=== PATIENT | female | born 1965 | race Caucasian/White ===

== ENCOUNTER 2017-05-19 13:45 | Emergency (ER) | payer MEDICAID ==
--- NOTE | 2017-05-19 14:07 | ER Document Report ---
HPI - HPI Patient complains to provider of: vaginal FB Onset: Other - 6-8 wks ago Onset/Duration: Persistent Quality of pain: Achy Pain Level: 5 Context: Patient states that she was at her primary doctor's office today and was told she had a vaginal foreign body. Patient states that she had been having vaginal discharge for the past 2 months that changed 2 weeks ago. Pt has attempted to treat with Monistat. Patient denies any fever or urinary symptoms. Patient states that she had placed a tampon in vaginally 6-8 weeks ago to attempt to treat urinary incontinence when she was wearing an outfit that she could not wear underwear with. Patient does report a previous bladder tack surgery about 5 months ago. Associated Symptoms: Other - vaginal FB. denies: Fever Exacerbated by: Denies Relieved by: Denies Similar symptoms previously: No Recently seen / treated by doctor: Yes - ROS ROS below otherwise negative: Yes Systems Reviewed and Negative: Yes All other systems reviewed and negative - CONSTITUTIONAL Constitutional: DENIES: Fever, Chills - RESPIRATORY Respiratory: DENIES: Trouble Breathing, Coughing - GASTROINTESTINAL Gastrointestinal: REPORTS: Abdominal Pain. DENIES: Nausea, Patient vomiting - REPRODUCTIVE Reproductive: REPORTS: Abnormal bleeding / discharge - vag d/c. DENIES: : - DERM Skin Color: Normal Skin Problems: None Past Medical History - General Information source: Patient - Social History Smoking Status: Never Smoker Frequency of alcohol use: None Drug Abuse: None Occupation: none Family History: None - Past Medical History Cardiac Medical History: Denies: Hx Coronary Artery Disease, Hx Heart Attack, Hx Hypertension Pulmonary Medical History: Reports: Hx Bronchitis, Hx COPD - no meds Denies: Hx Asthma, Hx Pneumonia Neurological Medical History: Reports: Hx Migraine. Denies: Hx Cerebrovascular Accident, Hx Seizures Renal/ Medical History: Reports: Other - urinary incontinence. Denies: Hx Peritoneal Dialysis Musculoskeltal Medical History: Denies Hx Arthritis Past Surgical History: Reports: Hx Orthopedic Surgery - bilateral knee replaced , right shoulder replaced, Hx Thyroid Surgery - thyroid removed - Immunizations Hx Diphtheria, Pertussis, Tetanus Vaccination: No Hx Pneumococcal Vaccination: 09/02/14 Vertical Provider Document - CONSTITUTIONAL Agree With Documented VS: Yes Exam Limitations: No Limitations General Appearance: WD/WN, No Apparent Distress - INFECTION CONTROL TRAVEL OUTSIDE OF THE [place] IN LAST 30 DAYS: No - HEENT HEENT: Atraumatic, Normocephalic - NECK Neck: Normal Inspection - RESPIRATORY Respiratory: Breath Sounds Normal, No Respiratory Distress O2 Sat by Pulse Oximetry: 99 - CARDIOVASCULAR Cardiovascular: Regular Rate, Regular Rhythm - REPRODUCTIVE Female Genitalia: Abnormal Inspection - pt with teal blue plastic circular, meshlike material in vaginal unable to be removed with ring forceps, pt with purulent vaginal discharge. negative: Adnexal Pain-Right, Adnexal Pain-Left Notes: JUANITA Benavides at bedside during exam - BACK Back: Normal Inspection. negative: CVA Tenderness-Right, CVA Tenderness-Left - MUSCULOSKELETAL/EXTREMETIES Musculoskeletal/Extremeties: ROBERTO PRESTON - NEURO Level of Consciousness: Awake, Alert, Appropriate Motor/Sensory: No Motor Deficit - DERM Integumentary: Warm, Dry, No Rash Course - Re-evaluation Re-evalutation: 05/19/17 15:15 Dr Crow to bedside for examination, advises RADIO FREQUENCY TECHNICIAN consultation 05/19/17 15:[address] Byrd who is on-call for RADIO FREQUENCY TECHNICIAN. Recommends giving patient a dose of Rocephin 250 mg IM in addition to doxycycline 100 mg p.o. twice daily for 10 days. Suspect that patient's symptoms are likely result of mesh erosion into the vagina from her previous bladder sling repair. Does not recommend any imaging, advises follow-up in the office on Monday for recheck. Advises having patient call the office at 8 AM to get an appointment for Monday. 05/19/17 15:[address] Byrd with Dr. Duong who recommends CT imaging with iv contrast only. 05/19/17 18:20 Patient returned to room after CT. Patient states that she has been coughing and she notices that she wheezes with her cough. Patient's respirations unlabored, vital signs stable. Breath sounds clear except for when she coughs and she has a very faint wheeze. Patient has been very restless and anxious since being told that she may have her bladder mesh eroding through the vagina. 05/19/17 18:30 Reviewed results of patient's CT report with Dr. Duong who agrees with discharge plan of care. Plan will be to have patient follow-up with a molded candles wicker on Monday as Dr. Byrd recommended. - Vital Signs Vital signs: Temp Pulse Resp BP Pulse Ox 98.5 F 82 18 161/96 H 99 05/19/17 13:47 05/19/17 13:47 05/19/17 13:47 05/19/17 13:47 05/19/17 13:47 - Laboratory Result Diagrams: 05/19/17 15:14 05/19/17 15:14 Laboratory results interpreted by me: 05/19/17 18:30 Labs- Entire Visit 05/19/17 05/19/17 05/19/17 14:56 15:07 15:07 WBC RBC Hgb Hct MCV MCH MCHC RDW Plt Count Seg Neutrophils % Lymphocytes % Monocytes % Eosinophils % Basophils % Absolute Neutrophils Absolute Lymphocytes Absolute Monocytes Absolute Eosinophils Absolute Basophils Sodium Potassium Chloride Carbon Dioxide Anion Gap BUN Creatinine Est GFR ( Amer) Est GFR (Non-Af Amer) Glucose Calcium Total Bilirubin Direct Bilirubin Indirect Bilirubin Neonat Total Bilirubin AST ALT Alkaline Phosphatase Total Protein Albumin Urine Color YELLOW Urine Appearance SLIGHTLY-CLOUDY Urine pH 7.0 Ur Specific [place] 1.017 Urine Protein NEGATIVE Urine Glucose (UA) NEGATIVE Urine Ketones NEGATIVE Urine Blood SMALL H Urine Nitrite NEGATIVE Urine Bilirubin NEGATIVE Urine Urobilinogen NEGATIVE Ur Leukocyte Esterase TRACE H Urine WBC (Auto) 9 Urine RBC (Auto) 3 Squamous Epi Cells Auto <1 Urine Mucus (Auto) RARE Urine Ascorbic Acid NEGATIVE Epi Cells (Wet Prep) 3+ EPITHELIALS SEEN Bacteria (Wet Prep) 4+ BACTERIA SEEN Trichomonas (Wet Prep) NO TRICHOMONAS SEEN Vaginal WBC 4+ WBCS SEEN Vaginal Yeast NO YEAST SEEN Chlamydia DNA (PCR) NOT DETECTED N.gonorrhoeae DNA (PCR) NOT DETECTED 05/19/17 05/19/17 15:14 15:14 WBC 4.5 RBC 4.33 Hgb 14.1 Hct 41.7 MCV 96 MCH 32.5 MCHC 33.8 RDW 13.7 Plt Count 329 Seg Neutrophils % 50.9 Lymphocytes % 38.3 Monocytes % 8.0 Eosinophils % 2.1 Basophils % 0.7 Absolute Neutrophils 2.3 Absolute Lymphocytes 1.7 Absolute Monocytes 0.4 Absolute Eosinophils 0.1 Absolute Basophils 0.0 Sodium 140.7 Potassium 4.8 Chloride 101 Carbon Dioxide 31 H Anion Gap 9 BUN 7 Creatinine 0.50 L Est GFR ( Amer) > 60 Est GFR (Non-Af Amer) > 60 Glucose 95 Calcium 9.8 Total Bilirubin 0.4 Direct Bilirubin 0.4 Indirect Bilirubin Not Reportable Neonat Total Bilirubin Not Reportable AST 27 ALT 27 Alkaline Phosphatase 114 Total Protein 7.6 Albumin 4.5 Urine Color Urine Appearance Urine pH Ur Specific [place] Urine Protein Urine Glucose (UA) Urine Ketones Urine Blood Urine Nitrite Urine Bilirubin Urine Urobilinogen Ur Leukocyte Esterase Urine WBC (Auto) Urine RBC (Auto) Squamous Epi Cells Auto Urine Mucus (Auto) Urine Ascorbic Acid Epi Cells (Wet Prep) Bacteria (Wet Prep) Trichomonas (Wet Prep) Vaginal WBC Vaginal Yeast Chlamydia DNA (PCR) N.gonorrhoeae DNA (PCR) 05/19/17 18:44 - Diagnostic Test Radiology reviewed: Reports reviewed Discharge - Discharge Clinical Impression: Pulmonary nodule, right, Vaginal discharge, Elevated blood pressure reading Retained foreign body of vagina Qualifiers: Encounter type: initial encounter Qualified Code(s): T19.2XXA - Foreign body in vulva and vagina, initial encounter Condition: Stable Disposition: HOME, SELF-CARE Instructions: Rocephin ([facility]), Doxycycline ([facility]), Growth or Mass, Pending Workup ([facility]) Additional Instructions: Return immediately for any new or worsening symptoms Followup with your primary care provider, call tomorrow to make a followup appointment Your CT scan showed that she had a pulmonary nodule, follow-up with your primary doctor to have this further evaluated. Follow up with the molded candles wicker on Monday. Call them first thing Monday morning at 8 AM for an appointment same day. Let them know that you are seen in the emergency department and Dr. Byrd advised that she be seen on Monday for further evaluation. Dr. Byrd is concerned that you may be having a complication from your previous bladder surgery. Prescriptions: Doxycycline Hyclate 100 mg PO BID #20 capsule Forms: Elevated Blood Pressure Referrals: MERLIN KELLY MD [Primary Care Provider] - Follow up as needed [facility] [Provider Group] - 05/22/17
--- NOTE | 2017-05-19 14:18 | ER Document Report ---
ED Medical Screen (RME) - General Chief Complaint: Foreign Body in Vagina Stated Complaint: VAGINAL PROBLEM TRAVEL OUTSIDE OF THE [place] IN LAST 30 DAYS: No - HPI Patient complains to provider of: Patient with foreign object in the vagina already seen by nurse practitione - Related Data Allergies/Adverse Reactions: No Known Allergies Allergy (Verified 05/19/17 13:50) Past Medical History - Past Medical History Cardiac Medical History: Denies: Hx Coronary Artery Disease, Hx Heart Attack, Hx Hypertension Pulmonary Medical History: Reports: Hx Bronchitis, Hx COPD - no meds Denies: Hx Asthma, Hx Pneumonia Neurological Medical History: Denies: Hx Cerebrovascular Accident, Hx Seizures Renal/ Medical History: Denies: Hx Peritoneal Dialysis Musculoskeltal Medical History: Denies Hx Arthritis Past Surgical History: Reports: Hx Orthopedic Surgery - bilateral knee replaced , right shoulder replaced, Hx Thyroid Surgery - thyroid removed - Immunizations Hx Diphtheria, Pertussis, Tetanus Vaccination: No Physical Exam - Vital signs Vitals: Temp Pulse Resp BP Pulse Ox 98.5 F 82 18 161/96 H 99 05/19/17 13:47 05/19/17 13:47 05/19/17 13:47 05/19/17 13:47 05/19/17 13:47 Course - Vital Signs Vital signs: Temp Pulse Resp BP Pulse Ox 98.5 F 82 18 161/96 H 99 05/19/17 13:47 05/19/17 13:47 05/19/17 13:47 05/19/17 13:47 05/19/17 14:07
--- NOTE | 2017-05-19 15:21 | ER Document Report ---
Doctor's Note Notes: 05/19/17 15:20 52-year-old female that I was asked to see in consultation who presents today with 2 months of vaginal discharge with the onset of abdominal pain and cramping today. No fevers or vomiting. She states that over the last week the discharge has developed a foul odor. Patient states she had bladder tacking secondary to bladder prolapse around 5 months ago here at this facility. On examination the patient has no obvious tenderness to the suprapubic, left, right lower quadrant. Pelvic examination shows no obvious external lesions. On speculum exam the patient has what appears to be plastic circular stringy material that is non-mobile consistent with possibly previous bladder tacking. No obvious discharge in the vaginal vault. We will obtain basic labs, cultures, urine analysis, and have consulted C ARCHITECT for further evaluation.
[2017-05-19] MEDS ORDERED: CEFTRIAXONE INJ 250 MG VIAL IV ONE (15:26)
[2017-05-19] MEDS ORDERED: DOXYCYCLINE HYCLATE 100 MG TABLET PO ONE (15:26)
[2017-05-19 15:30] LABS: ABSOLUTE EOSINOPHILS # (AUTO) 0.1 10^3/uL (0.0-0.6); ABSOLUTE LYMPHOCYTES (AUTO) 1.7 10^3/uL (0.5-4.7); ABSOLUTE MONOCYTES (AUTO) 0.4 10^3/uL (0.1-1.4); ABSOLUTE NEUT (AUTO) 2.3 10^3/uL (1.7-8.2); BASOPHILS % (AUTO) 0.7 % (0-2); EOSINOPHILS % (AUTO) 2.1 % (0-6); HEMATOCRIT 41.7 % (36.0-47.0); HEMOGLOBIN 14.1 g/dL (12.0-15.5); HGB HCT DIFFERENCE 0.6; LYMPHOCYTES % (AUTO) 38.3 % (13-45); MEAN CORPUSCULAR HEMOGLOBIN 32.5 pg (27.0-33.4); MEAN CORPUSCULAR HGB CONC 33.8 g/dL (32.0-36.0); MEAN CORPUSCULAR VOLUME 96 fl (80-97); RED BLOOD COUNT 4.33 10^6/uL (3.72-5.28); RED CELL DISTRIBUTION WIDTH 13.7 % (11.5-14.0); SEGMENTED NEUTROPHILS % (AUTO) 50.9 % (42-78); WHITE BLOOD COUNT 4.5 10^3/uL (4.0-10.5)
[2017-05-19 15:34] LABS: APPEARANCE,URINE SLIGHTLY-CLOUDY; BILIRUBIN,URINE NEGATIVE (NEGATIVE); GLUCOSE, URINE NEGATIVE (NEGATIVE); KETONES,URINE NEGATIVE (NEGATIVE); LEUKOCYTE ESTERASE,URINE TRACE (NEGATIVE); NITRITE,URINE NEGATIVE (NEGATIVE); PROTEIN,URINE NEGATIVE (NEGATIVE); URINE SPECIFIC GRAVITY 1.017; UROBILINOGEN,URINE NEGATIVE mg/dL (<2.0)
[2017-05-19 15:47] LABS: ALANINE AMINOTRANSFERASE 27 U/L (9-52); ALBUMIN 4.5 g/dL (3.5-5.0); ALKALINE PHOSPHATASE 114 U/L (38-126); ANION GAP 9 (5-19); ASPARTATE AMINO TRANSFERASE 27 U/L (14-36); BILIRUBIN,DIRECT 0.4 mg/dL (0.0-0.4); BILIRUBIN,TOTAL 0.4 mg/dL (0.2-1.3); BLOOD UREA NITROGEN 7 mg/dL (7-20); CALCIUM 9.8 mg/dL (8.4-10.2); CARBON DIOXIDE 31 mmol/L (22-30); CHLORIDE 101 mmol/L (98-107); GLUCOSE 95 mg/dL (75-110); POTASSIUM 4.8 mmol/L (3.6-5.0); SODIUM 140.7 mmol/L (137-145); TOTAL PROTEIN 7.6 g/dL (6.3-8.2)
[2017-05-19 16:59] LABS: CHLAM PCR NOT DETECTED (NOT DETECT)
[2017-05-19 18:14] VITALS: BP 143/83
[2017-05-19] MEDS ORDERED: IPRATROPIUM/ALBUTEROL 0.5-2.5 MG/3 ML AMPUL NEB ONE (18:20)
--- NOTE | 2017-05-19 18:27 | RADIOLOGY REPORT (SQ) ---
EXAM DESCRIPTION: CT ABD/PELVIS WITH IV ONLY COMPLETED DATE/TIME: 05/19/2017 6:08 pm REASON FOR STUDY: pelvic pain, vag FB, ? bladder mesh erosion COMPARISON: None. TECHNIQUE: CT scan of the abdomen and pelvis performed using helical scanning technique with dynamic intravenous contrast injection. No oral contrast. Images reviewed with lung, soft tissue, and bone windows. Reconstructed coronal and sagittal MPR images reviewed. Delayed images for evaluation of the urinary system also acquired. All images stored on PACS. All CT scanners at this facility use dose modulation, iterative reconstruction, and/or weight based d osing when appropriate to reduce radiation dose to as low as reasonably achievable (ALARA). [facility]: Dose Right [facility]: CareDose [facility]: Dose Right [facility]: Teradose 4D [facility]: [employer] CONTRAST TYPE AND DOSE: contrast/concentration: Isovue 370.00 mg/ml; Total Contrast Delivered: 56.0 ml; Total Saline Delivered: 30.0 ml RENAL FUNCTION: GFR > 60. RADIATION DOSE: Up-to-date CT equipment and radiation dose reduction techniques were employed. CTDIv ol: 4.8 - 4.9 mGy. DLP: 440 mGy-cm.. LIMITATIONS: None. FINDINGS: LOWER CHEST: 4.3 mm nodule right middle lobe LIVER: Normal size. No masses. No dilated ducts. SPLEEN: Normal size. No focal lesions. PANCREAS: No masses. No significant calcifications. No adjacent inflammation or peripancreatic fluid collections. Pancreatic duct not dilated. GALLBLADDER: No identified stones by CT criteria. No inflammatory changes to suggest cholecystitis. ADRENAL GLANDS: No significant masses or asymmetry. RIGHT KIDNEY AND URETER: No solid masses. No significant calcifications. No hydronephrosis or hyd roureter. LEFT KIDNEY AND URETER: No solid masses. No significant calcifications. No hydronephrosis or hydr oureter. AORTA AND VESSELS: No aneurysm. No dissection. Renal arteries, SMA, celiac without stenosis. RETROPERITONEUM: No retroperitoneal adenopathy, hemorrhage or masses. BOWEL AND PERITONEAL CAVITY: No masses or inflammatory changes. No free fluid or peritoneal masses. APPENDIX: Not visualized. PELVIS: No mass. No free fluid. Normal bladder. No radiopaque foreign body. ABDOMINAL WALL: No masses. No hernias. BONES: Degenerative disc disease L4-5. OTHER: No other significant finding. IMPRESSION: NO SIGNIFICANT OR ACUTE FINDING IN THE ABDOMEN OR PELVIS ON CT SCAN WITH IV CONTRAST. No radio opaque foreign body. TECHNICAL DOCUMENTATION: JOB ID: [id number] Quality ID # [id number]: Final reports with documentation of one or more dose reduction techniques (e.g., Au tomated exposure control, adjustment of the mA and/or kV according to patient size, use of iterative reconstruction technique) 2010 [employer]- All Rights Reserved
== END 2017-05-19 18:52 | disposition home or self-care (01) ==
LOC: ER 13:45
DX: T19.2XXA Foreign body in vulva and vagina, initial encounter (principal); T83.721A Exposure of implanted vaginal mesh into vagina, initial encounter; R91.1 Solitary pulmonary nodule; N89.8 Other specified noninflammatory disorders of vagina; R03.0 Elevated blood-pressure reading, without diagnosis of hypertension; R05 Cough; X58.XXXA Exposure to other specified factors, initial encounter
CPT/HCPCS: 94640; 99284; 96365; 36415; 87040; 87086; 87210; 85025; 80053; 81001; 87491; 87591; 74177; J3490; J0696; J7620

== ENCOUNTER → 2017-11-27 | Outpatient (CLI) | payer MEDICAID ==
--- NOTE | 2017-11-27 15:08 | RADIOLOGY REPORT (SQ) ---
EXAM DESCRIPTION: CT CHEST WITHOUT COMPLETED DATE/TIME: 11/27/2017 1:55 pm REASON FOR STUDY: SOLITARY PULMONARY NODULE (R91.1) R91.1 SOLITARY PULMONARY NODULE COMPARISON: 05/19/2017. TECHNIQUE: CT scan performed of the chest without intravenous contrast. Images reviewed with lung, soft tissue and bone windows. Reconstructed coronal and sagittal MPR images reviewed. All images st ored on PACS. All CT scanners at this facility use dose modulation, iterative reconstruction, and/or weight based d osing when appropriate to reduce radiation dose to as low as reasonably achievable (ALARA). [facility]: Dose Right [facility]: CareDose [facility]: Dose Right [facility]: Teradose 4D [facility]: [employer] RADIATION DOSE: CT Rad equipment meets quality standard of care and radiation dose reduction techniq ues were employed. CTDIvol: 2.9 mGy. DLP: 118 mGy-cm. mGy. LIMITATIONS: No technical limitations. FINDINGS: LUNGS AND PLEURA: There is evidence of bullous disease in the apices and chronic scarring in the apices. There is a 4 mm triangular-shaped density in the right middle lobe stable and unchang ed (image number 87/135 series 4) . Fibrotic scarring is noted in the lingular, right middle lobe, a nd both lower lobes. There is focal infiltrate or consolidation noted in right lower lobe (image num zabrina 118/135 series 4). HILAR AND MEDIASTINAL STRUCTURES: No mediastinal or hilar adenopathy seen. HEART AND VASCULAR STRUCTURES: No pericardial effusion. UPPER ABDOMEN: There is evidence for 1.3 x 1.1 cm simple cyst right lobe of the liver. THYROID AND OTHER SOFT TISSUES: No masses. No adenopathy. BONES: No significant finding. HARDWARE: None in the chest. OTHER: Surgical clips right paratracheal regions most likely from thyroidectomy. . IMPRESSION: 1. Stable nodular density right middle lobe measuring 4 mm unchanged from 05/19/2017. 2 . Focal infiltrate or consolidation right lower lobe. TECHNICAL DOCUMENTATION: JOB ID: [id number] Quality ID # [id number]: Final reports with documentation of one or more dose reduction techniques (e.g., Au tomated exposure control, adjustment of the mA and/or kV according to patient size, use of iterative reconstruction technique) 2010 [employer]- All Rights Reserved
== END ==
LOC: RAD 13:39
PROVIDERS: ATTEND Internal Medicine Critical Care Medicine
DX: R91.1 Solitary pulmonary nodule (principal)
CPT/HCPCS: 71250

== ENCOUNTER → 2018-03-20 | Outpatient (CLI) | payer MEDICAID ==
[2018-03-20 11:31] LABS: FREE T3 2.49 pg/mL (2.77-5.27); FREE T4 (FREE THYROXINE) 0.84 ng/dL (0.78-2.19)
[2018-03-20 11:45] LABS: THYROID STIMULATING HORMONE 1.67 uIU/mL (0.47-4.68)
== END ==
LOC: OD 10:09
PROVIDERS: ATTEND Physician Assistant Surgical
DX: E89.0 Postprocedural hypothyroidism (principal); Z85.850 Personal history of malignant neoplasm of thyroid
CPT/HCPCS: 36415; 84439; 84443; 84481

== ENCOUNTER → 2018-07-10 | Outpatient (CLI) | payer MEDICAID ==
--- NOTE | 2018-07-10 15:41 | RADIOLOGY REPORT (SQ) ---
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 No oral contrast. Images reviewe d with soft tissue and bone windows. Reconstructed coronal and sagittal MPR images reviewed. All im ages stored on PACS. Patient was injected with 58 mL of IV Omnipaque 350 without immediate complication. Creatinine 0.6. All CT scanners at this facility use dose modulation, iterative reconstruction, and/or weight based d osing when appropriate to reduce radiation dose to as low as reasonably achievable (ALARA). [facility]: Dose Right [facility]: CareDose [facility]: Dose Right [facility]: Teradose 4D [facility]: [employer] RADIATION DOSE: CT Rad equipment meets quality standard of care and radiation dose reduction techniq ues were employed. CTDIvol: 3.3 - 3.9 mGy. DLP: 204 mGy-cm. mGy. LIMITATIONS: None. FINDINGS: PELVIC BONES: No acute fracture. No worrisome bone lesions. VISUALIZED SPINE: Moderate disc space loss of height at L4-5 and L5-S1 HIPS: No acute fracture or dislocation. No worrisome bone lesions. PELVIC SOFT TISSUES: The mesh from sacroculpopexy is not radiopaque, and not visualized. No presacra l fluid collection worrisome for abscess. Post hysterectomy. 3.5 x 2.7 cm right ovarian cyst on image 25. 2.1 x 1.5 cm left ovarian cyst on a xial image 29. Pelvic bowel loops are unremarkable. No pelvic adenopathy or free fluid. Distal ureters, urinary bl adder unremarkable. EXTRAPELVIC SOFT TISSUES: No significant findings. OTHER: No other significant finding. IMPRESSION: NO ACUTE OR SIGNIFICANT FINDINGS. TECHNICAL DOCUMENTATION: JOB ID: [id number] Quality ID # [id number]: Final reports with documentation of one or more dose reduction techniques (e.g., Au tomated exposure control, adjustment of the mA and/or kV according to patient size, use of iterative reconstruction technique) 2010 [employer]- All Rights Reserved Reading location - IP/workstation name: [email or web address]
== END ==
LOC: RAD 07:55
PROVIDERS: ATTEND Urology
DX: T83.9XXA Unspecified complication of genitourinary prosthetic device, implant and graft, initial encounter (principal)
CPT/HCPCS: 72193; 82565

== ENCOUNTER → 2018-10-23 | Outpatient (CLI) | payer MEDICAID ==
--- NOTE | 2018-10-23 13:54 | RADIOLOGY REPORT (SQ) ---
EXAM DESCRIPTION: CT CHEST WITHOUT COMPLETED DATE/TIME: 10/23/2018 1:33 pm REASON FOR STUDY: PULMONARY NODULE (R91.1) R91.1 SOLITARY PULMONARY NODULE COMPARISON: 11/27/2017 TECHNIQUE: CT scan performed of the chest without intravenous contrast. Images reviewed with lung, soft tissue and bone windows. Reconstructed coronal and sagittal MPR images reviewed. All images st ored on PACS. All CT scanners at this facility use dose modulation, iterative reconstruction, and/or weight based d osing when appropriate to reduce radiation dose to as low as reasonably achievable (ALARA). [facility]: Dose Right [facility]: CareDose [facility]: Dose Right [facility]: Teradose 4D [facility]: [employer] RADIATION DOSE: CT Rad equipment meets quality standard of care and radiation dose reduction techniq ues were employed. CTDIvol: 3.3 mGy. DLP: 130 mGy-cm. mGy. LIMITATIONS: No technical limitations. FINDINGS: LUNGS AND PLEURA: 4 mm nodule middle lobe image 88 has been stable since 05/19/2017. No de veloping nodules or infiltrate. No effusions. HILAR AND MEDIASTINAL STRUCTURES: No identified masses or abnormal nodes. No obvious aneurysm. HEART AND VASCULAR STRUCTURES: No aneurysm. No pericardial effusion. UPPER ABDOMEN: No significant findings. Limited exam. THYROID AND OTHER SOFT TISSUES: No masses. No adenopathy. BONES: No acute findings. HARDWARE: None in the chest. OTHER: No other significant findings. IMPRESSION: Stable 4 mm pulmonary nodule. TECHNICAL DOCUMENTATION: JOB ID: [id number] Quality ID # [id number]: Final reports with documentation of one or more dose reduction techniques (e.g., Au tomated exposure control, adjustment of the mA and/or kV according to patient size, use of iterative reconstruction technique) 2010 [employer]- All Rights Reserved Reading location - IP/workstation name: [email or web address] [email or web address]
== END ==
LOC: RAD 13:14
PROVIDERS: ATTEND Internal Medicine Critical Care Medicine
DX: R91.1 Solitary pulmonary nodule (principal)
CPT/HCPCS: 71250

== ENCOUNTER → 2019-03-06 | Outpatient (CLI) | payer MEDICAID ==
[2019-03-06 13:17] LABS: FREE T3 2.79 pg/mL (2.77-5.27); FREE T4 (FREE THYROXINE) 0.44 ng/dL (0.78-2.19)
[2019-03-06 13:31] LABS: THYROID STIMULATING HORMONE 22.5 uIU/mL (0.47-4.68)
== END ==
LOC: OD 11:46
PROVIDERS: ATTEND Surgery
DX: E89.0 Postprocedural hypothyroidism (principal)
CPT/HCPCS: 36415; 84439; 84443; 84481

== ENCOUNTER → 2019-05-03 | Outpatient (CLI) | payer MEDICAID ==
[2019-05-03 12:40] LABS: FREE T3 3.45 pg/mL (2.77-5.27); FREE T4 (FREE THYROXINE) 1.46 ng/dL (0.78-2.19)
[2019-05-03 12:54] LABS: THYROID STIMULATING HORMONE 0.02 uIU/mL (0.47-4.68)
== END ==
LOC: OD 11:28
PROVIDERS: ATTEND Surgery
DX: E89.0 Postprocedural hypothyroidism (principal)
CPT/HCPCS: 36415; 84439; 84443; 84481